=== PATIENT | male | born 2000 | race Caucasian/White ===

== ENCOUNTER → 2023-08-17 15:00 | Outpatient (BNVA) | payer OTHER, SELFPAY | PROVIDERS: Family Provider Family Medicine; PCP Family Medicine; Visit Provider Registered Nurse Neonatal Intensive Care | DX: S93.402A Sprain of unspecified ligament of left ankle, initial encounter; W18.39XA Other fall on same level, initial encounter; Y99.0 Civilian activity done for income or pay | CPT/HCPCS: 73610 ==

== ENCOUNTER → 2023-11-21 15:35 | Outpatient (BNVA) | payer SELFPAY | PROVIDERS: Family Provider Family Medicine; PCP Family Medicine; Visit Provider Registered Nurse Neonatal Intensive Care | DX: S62.001A Unspecified fracture of navicular [scaphoid] bone of right wrist, initial encounter for closed fracture (principal); W10.9XXA Fall (on) (from) unspecified stairs and steps, initial encounter; Y92.009 Unspecified place in unspecified non-institutional (private) residence as the place of occurrence of the external cause | CPT/HCPCS: 73110 ==

== ENCOUNTER 2024-03-01 13:46 | Outpatient (RCR) | payer OTHER, SELFPAY | END 2024-03-17 23:59 | disposition home or self-care (01) | LOC: SOT 13:46 | PROVIDERS: Visit Provider Physician Assistant | DX: S62.021A Displaced fracture of middle third of navicular [scaphoid] bone of right wrist, initial encounter for closed fracture (principal) | CPT/HCPCS: 97022; 97110; 97140; 97165; 97530 ==

== ENCOUNTER 2024-03-18 06:00 | Outpatient (RCR) | payer SELFPAY | END 2024-04-17 23:59 | disposition home or self-care (01) | LOC: SOT 06:00 | PROVIDERS: Visit Provider Physician Assistant | DX: S62.021A Displaced fracture of middle third of navicular [scaphoid] bone of right wrist, initial encounter for closed fracture (principal); X58.XXXA Exposure to other specified factors, initial encounter | CPT/HCPCS: 97022; 97110; 97140 ==

== ENCOUNTER 2024-04-18 06:30 | Outpatient (RCR) | payer SELFPAY | END 2024-05-18 23:59 | disposition home or self-care (01) | LOC: SOT 06:30 | PROVIDERS: Visit Provider Physician Assistant | DX: S62.001A Unspecified fracture of navicular [scaphoid] bone of right wrist, initial encounter for closed fracture (principal); X58.XXXA Exposure to other specified factors, initial encounter | CPT/HCPCS: 97022; 97110; 97140 ==

== ENCOUNTER → 2024-05-24 07:52 | Outpatient (BNVA) | payer SELFPAY | DX: R50.9 Fever, unspecified (principal) | CPT/HCPCS: 87400 ==

== ENCOUNTER 2024-08-29 08:45 | Emergency (ER) | payer SELFPAY ==
--- NOTE | 2024-08-29 09:03 | ED_ITS ---
HPI - Abdominal Pain 2 General: Chief Complaint: Abdominal Pain Stated Complaint: abdominal/back pain Time Seen by Provider: 08/29/24 08:59 Source: patient Mode of arrival: ambulatory Limitations: no limitations History of Present Illness: 24-year-old male who states that he has been having abdominal pain since this morning. States been a sharp pain in his lower abdomen rates it a 6 out of 10 he denies any fevers denies any vomiting or diarrhea he was sent here from clinic to rule out appendicitis. No surgical history Associated Symptoms: Denies chills, diarrhea, fever(s), nausea and vomiting Related Data Home Medications ?Medication ?Instructions ?Recorded ?Confirmed ibuprofen 200 mg tablet 400 mg PO Q6H PRN Fever Or P ain 08/29/24 08/29/24 Previous Rx's ?Medication ?Instructions ?Recorded naproxen 500 mg tablet (Naprosyn) 500 mg PO BID PRN pa in #20 tabs 08/29/24 ondansetron 4 mg disintegrating 4 mg PO Q6H PRN nausea and 08/29/24 tablet vomiting #14 tabs Allergies Allergy/AdvReac Type Severity Reaction Status Date / Time No Known Allergies Allergy Verified 08/29/24 08:23 Review of Systems 2 Const: Denies: fever(s), chills, body aches or change in appetite ENMT: Denies: throat pain or dental pain Card: Denies: chest pain Resp: Denies: dyspnea GI: Reports: abdominal pain; Denies: nausea, vomiting or diarrhea Musc: Denies: neck pain or back pain Skin/Breast: Denies: rash All/Imm: Denies: urticaria PFSH ED 2 PFSH: Medical History Abdominal pain in male Social History Smoking and tobacco/nicotine status: current every day tobacco/nicotine user Physical Exam 2 Const: COMMON NORMALS: no acute distress, patient oriented x3 and healthy appearing HENMT: COMMON NORMALS: normocephalic and atraumatic HEAD & SCALP: n ormocephalic and atraumatic Eye: COMMON NORMALS: conjunctivae normal CONJUNCTIVA: Yes conjunctivae normal Neck/C-Spine: COMMON NORMALS: full ROM and supple Chest: COMMONS NORMALS: normal inspection of the chest Resp: COMMON NORMALS: normal respiratory effort Cardio: COMMON NORMALS: regular rate, regular rhythm and No murmurs present (Cardio) RATE: regular rate RHYTHM: regular rhythm GI: COMMON NORMALS: Normal to inspection, nondistended, normoactive bowel sounds present, Soft to palpation and no masses PALPATION: Yes Soft to palpation OTHER: lower abd tenderness Extremity: COMMON NORMALS: normal to inspection and full ROM Neuro: COMMON NORMALS: patient oriented x3, moves all extremities and no focal motor deficits Psych: COMMON NORMALS: mental status grossly normal, Normal thought process present and cooperative THOUGHT PROCESS: Normal thought process present Skin: COMMON NORMALS: no rashes or lesions noted and no wounds GENERAL SKIN EXAM: no rashes or lesions noted Course 2 Vital Signs: Vital signs: Vital Signs Temperature 99.0 F 08/29/24 09:11 Pulse Rate 71 08/29/24 09:11 Respiratory Rate 16 08/29/24 09:11 Blood Pressure 122/64 08/29/24 09:11 Pulse Oximetry 100 08/29/24 09:11 Oxygen Delivery Me thod Room Air 08/29/24 09:11 MDM - Abdominal Pain Medical Decision Making Patient presents here with abdominal pain blood work CT is normal no signs appendicitis he feels improved he stable for discharge follow-up PCP return if worsening. Medical Records I reviewed the patient's medical records. Lab Data I reviewed the patient's lab results. 08/29/24 09:17 08/29/24 09:17 Labs/Radiology: Radiology Impressions Abdomen/Pelvis CT 08/29/24 09:03 IMPRESSION: 1. Normal CT abdomen and pelvis. 2. No appendicitis. 3. No renal obstruction. Laboratory Results WBC 6.02 10^3/uL (3.29-11.43) 08/29/24 09:17 RBC 4.89 10^6/uL (3.85-5.65) 08/29/24 09:17 Hgb 14.50 g/dL (11.27-16.99) 08/29/24 09:17 Hct 43.7 % (37-53) 08/29/24 09:17 MCV 89.4 fl (82-101) 08/29/24 09:17 MCH 29.7 pg (27-33) 08/29/24 09:17 MCHC 33.2 g/dL (30-55) 08/29/24 09:17 RDW 12.0 % (12.1-15.1) L 08/29/24 09:17 Plt Count 284 10^3/cmm (157-399) 08/29/24 09:17 MPV 9.5 fL (7.4-10.4) 08/29/24 09:17 Neut % (Auto) 54.5 % 08/29/24 09:17 Lymph % (Auto) 31.9 % 08/29/24 09:17 [place] % (Auto) 10.1 % 08/29/24 09:17 Eos % (Auto) 3.0 % 08/29/24 09:17 Baso % (Auto) 0.3 % 08/29/24 09:17 Neut # (Auto) 3.28 10^3/uL (1.8-7.7) 08/29/24 09:17 Lymph # (Auto) 1.9 10^3/uL (0.8-4.8) 08/29/24 09:17 [place] # (Auto) 0.6 10^3/uL (0.2-0.9) 08/29/24 09:17 Eos # (Auto) 0.2 10^3/uL (0.0-0.8) 08/29/24 09:17 Baso # (Auto) 0.0 10^3/uL (0.0-0.1) 08/29/24 09:17 Nucleated RBC % (auto) 0 % 08/29/24 09:17 Nucleated RBCs # 0.0 /100WBC 08/29/24 09:17 Sodium 143 mmol/L (136-145) 08/29/24 09:17 Potassium 4.0 mmol/L (3.5-5.1) 08/29/24 09:17 Chloride 107 mmol/L (98-107) 08/29/24 09:17 Carbon Dioxide 25 mmol/L (22-29) 08/29/24 09:17 Anion Gap 15.0 (5-19) 08/29/24 09:17 BUN 13 mg/dL (6-20) 08/29/24 09:17 Creatinine 0.8 mg/dL (0.7-1.2) 08/29/24 09:17 GFR Calculation 119.8 mL/min (90-130) 08/29/24 09:17 Glucose 91 mg/dL (65-115) 08/29/24 09:17 Calculated Osmolality 296 mOsm/kg (285-295) H 08/29/24 09:17 Calcium 10.0 mg/dL (8.5-10.5) 08/29/24 09:17 Total Bilirubin 0.4 mg/dL (0.15-1.2) 08/29/24 09:17 AST 40 U/L (0-40) 08/29/24 09:17 ALT 23 U/L (0-41) 08/29/24 09:17 Alkaline Phosphatase 79 U/L (40-130) 08/29/24 09:17 Total Protein 7.2 g/dL (6.6-8.7) 08/29/24 09:17 Albumin 4.6 g/dL (3.5-5.2) 08/29/24 09:17 Globulin 2.6 g/dL (1.3-4.6) 08/29/24 09:17 Lipase 32 U/L (13-60) 08/29/24 09:17 All radiology interpretation(s) finalized by discharge Discharge Plan Discharge Patient Disposition: Home Clinical Impression: Abdominal pain Condition: Stable Prescriptions: New ondansetron 4 mg tablet,disintegrating 4 mg PO Q6H PRN (Reason: nausea and vomiting) Qty: 14 0RF naproxen [Naprosyn] 500 mg tablet 500 mg PO BID PRN (Reason: pain) Qty: 20 0RF No Action ibuprofen 200 mg tablet 400 mg PO Q6H PRN (Reason: Fever Or Pain) Discharge Orders: Discharge ED (Routine); Ordered 08/29/24 Ordered By: Geena Blake Discharge Diet: Advance as tolerated Discharge Activity: Resume usual activity Patient Instructions: Abdominal Pain (ED) Stand Alone Forms: Work/School Release Print Language: Peruvian Coding Level of Care Code ED Site Director for Iam Carroll
--- NOTE | 2024-08-29 09:03 | CT_ITS ---
WS: [id number] CT ABDOMEN AND PELVIS WITH CONTRAST HISTORY: abd pain, central pain into back. TECHNIQUE: Imaging performed of the abdomen and pelvis with IV contrast. Single phase imaging of the abdomen. Coronal and sagittal reformats are submitted. All CT scans at [facility] use at least one of these dose optimization techniques: automated exposure control; mA and/or kV adjustment per patient size (includes targeted exams where dose is matched to clinical indication); or iterative reconstruction. IV CONTRAST: Omnipaque 350; 100 mL IV. Oral contrast: No DLP: 413.78 mGy.cm COMPARISON: None available. Lower thorax: Lung bases are clear. Heart is normal size. No hiatal hernia. Liver/biliary system: Normal size with no intrahepatic dilatation. Gallbladder: Normal. No gallstones or wall thickening. No pericholecystic fluid. Pancreas: Normal size pancreas and pancreatic duct. No adjacent inflammation. Spleen: Normal size spleen. No mass or infarct. Adrenal glands: Normal. Right kidney: Normal. Left kidney: Normal. Aorta: Normal. Lymphadenopathy: None. Free fluid: None. GI tract: Unremarkable. Abdominal wall: Unremarkable abdominal wall. No hernia. Pelvis: No free fluid or adenopathy within the pelvis. Bones: Unremarkable. CT/CT abdomen pelvis w con* [id number] IMPRESSION: 1. Normal CT abdomen and pelvis. 2. No appendicitis. 3. No renal obstruction.
[2024-08-29 09:11] VITALS: BP 122/64; PULSE 71; RESP 16; TEMP 37.2; O2SAT 100
[2024-08-29] MEDS: ondansetron 2 mg/ML SDV 2 mL 4 MG IVP (09:18)
[2024-08-29] MEDS: morphine 4 mg/mL SDV 1 mL IVP (09:19)
[2024-08-29 09:25] LABS: Basophils % 0.3 %; Eosinophils # 0.2 10^3/uL (0.0-0.8); Hematocrit 43.7 % (37-53); Lymphocytes # 1.9 10^3/uL (0.8-4.8); Lymphocytes % 31.9 %; Mean Corpuscular HGB Conc 33.2 g/dL (30-55); Mean Corpuscular Hemoglobin 29.7 pg (27-33); Mean Corpuscular Volume 89.4 fl (82-101); Mean Platelet Volume 9.5 fL (7.4-10.4); Monocytes # 0.6 10^3/uL (0.2-0.9); Monocytes % 10.1 %; Neutrophils # 3.28 10^3/uL (1.8-7.7); Neutrophils % 54.5 %; Nucleated Red Blood Cells % 0 %; Platelet Count 284 10^3/cmm (157-399); Red Blood Count 4.89 10^6/uL (3.85-5.65); White Blood Count 6.02 10^3/uL (3.29-11.43)
[2024-08-29] MEDS: iohexol 350 mg/mL 500 mL Btl (per mL) IV (09:32)
[2024-08-29 09:47] LABS: Alanine Aminotransferase 23 U/L (0-41); Albumin Level 4.6 g/dL (3.5-5.2); Alkaline Phosphatase 79 U/L (40-130); Aspartate Amino Transferase 40 U/L (0-40); Blood Urea Nitrogen 13 mg/dL (6-20); Carbon Dioxide 25 mmol/L (22-29); Chloride 107 mmol/L (98-107); Creatinine Clr Calc Pharmacy 137.4604; Globulin 2.6 g/dL (1.3-4.6); Glomerular Filtration Rate 119.8 mL/min (90-130); Glucose 91 mg/dL (65-115); Lipase 32 U/L (13-60); Osmolality Calculated 296 mOsm/kg (285-295); Sodium 143 mmol/L (136-145); Total Bilirubin 0.4 mg/dL (0.15-1.2); Total Protein 7.2 g/dL (6.6-8.7)
[2024-08-29 10:22] VITALS: BP 112/62; PULSE 59; RESP 15; O2SAT 98
[2024-08-29 10:24] VITALS: BP 112/62; PULSE 68; O2SAT 98
== END 2024-08-29 10:28 | disposition home or self-care (01) ==
PROVIDERS: Emergency Provider Emergency Medicine
DX: R10.9 Unspecified abdominal pain (principal)
CPT/HCPCS: 74177; 80053; 83690; 85025; 96374; 96375; 99285; J2270; J2405